=== PATIENT | female | born 1965 | race Caucasian/White ===

== ENCOUNTER → 2022-06-12 12:48 | Outpatient (REF) | payer OTHER, SELFPAY ==
--- NOTE | 2022-06-12 12:56 | CA_ITS ---
Transthoracic Echocardiogram Patient (Last, First, Middle): Cinthia Gonzáles, Gender: Female Date of : 1965 Age: 56 Procedure Date: 06/12/2022 Procedure Type: Transthoracic Echocardiogram Location: OP Height: 165.1 cm Weight: 68.49 kg BSA: 1.76 m2 Heart Rate: 63 bpm BP: 130 / 75 mmHg Manager Strategic: DANNA Referring MD: Ayaka Roper NP Symptoms: HEART MURMUR Study Quality: Fair ECG Rhythm: Sinus Conclusions: - The left ventricular systolic function is hyperdynamic. The visually estimated ejection fraction is >70%. - Mild to moderate asymmetric septal hypertrophy. - No obvious valvular pathology seen on this study. Findings Left Ventricle Normal left ventricular cavity size. The left ventricular systolic function is hyperdynamic. The visually estimated ejection fraction is >70%. There is no evidence of regional wall motion abnormalities. Diastolic function is normal for age. Mild to moderate asymmetric septal hypertrophy. Right Ventricle Normal right ventricular cavity size and systolic function. Atria Both atria are normal in size. Aortic Valve There is a normal trileaflet aortic valve. There is no aortic valve stenosis. There is no aortic valve regurgitation. Mitral Valve The mitral valve appears normal. There is trace mitral valve regurgitation. There is no mitral valve stenosis. Pulmonic Valve The pulmonic valve is likely normal. Tricuspid Valve Normal tricuspid valve structure. There is trace tricuspid valve regurgitation. There is no evidence of pulmonary hypertension. Great Vessels The asc aorta is normal in size. Venous The inferior vena cava is normal in size and collapses greater than 50% with inspiration. Pericardium/Pleural There is no evidence of pericardial effusion. Prior Study Comparison No prior study available for comparison. Recommendations, Care & Conclusions No obvious valvular pathology seen on this study. Measurements 2D Linear Measurements IVSd: 1.28 0.6-0.9/0.6-1.0 cm LVIDd: 3.92 3.9-5.3/4.2-5.9 cm LVIDd Index: 2.23 2.4-3.2/2.2-3.1 cm/m2 LVIDs: 2.44 2.0-3.6 cm LVPWd: 0.99 0.7-1.1 cm LA Diam: 3.60 2.7-3.8/3.0-4.0 cm LAIDs Index: 2.05 1.5-2.3 cm/m2 LV Mass: 184.14 67-162/88-224 g LV Mass Index: 104.62 43-95/49-115 g/m2 LVOT Diam: 1.80 3.0+(-)1.3 cm 2D Systolic Function EF 4C: 73.90 >55% EF 2C: 61.90 >55% Mitral Valve MV Pk E: 0.87 MV PK A: 0.91 MV Decel Time: 180.00 E/A: 1.00 E'Lateral: 12.50 E'Medial: 6.64 E/E' Med: 13.20 E/E' Lat: 7.00 PHT: 53.00 MVA PHT: 4.15 Decel Bladen: 4.84 Aortic Valve AoV Pk Fuentes: 1.52 AoV Mn Fuentes: 1.09 AoV VTI: 0.33 AoV Pk Grad: 9.00 Aov Mn Grad: 5.00 ILIANA Cont.VTI: 2.22 LVOT LVOT Pk Fuentes: 1.45 LVOT Mn Fuentes: 0.94 LVOT VTI: 0.29 LVOT Pk Grad: 8.00 LVOT Mn Grad: 4.00 LVOT Diam: 1.80 LVOT Area: 2.54 Diastolic Function MV Pk E: 0.87 MV Pk A: 0.91 E/A: 1.00 E'Medial: 6.64 E/E' Med: 13.20 E' Laterial: 12.50 E/E' Lat: 7.00 Right Ventricle TAPSE (mm): 24.40 TVS' Fuentes: 9.73 Tricuspid Valve TR Pk Fuentes: 1.94 TR Pk Grad: 15.00 RA Press: 3.00 RVSP: 18.00 Great Vessels Aorta Sinus of Valsalva: 2.90 2.0-3.5 cm Ao Asc: 3.00 2.1-3.4 cm Pulmonary Valve PV Pk Fuentes: 0.85 Peak PV Grad: 3.00 Updated in Other Vendor System with Status of Final Moshe Palacios MD electronically signed on 06/13/2022 2:00:48 PM with status of Final
== END ==
LOC: HO.CARD 12:48
PROVIDERS: PCP Nurse Practitioner Family; Visit Provider Nurse Practitioner Family
DX: R01.1 Cardiac murmur, unspecified (principal)
CPT/HCPCS: 93306